=== PATIENT | female | born 1965 | race Caucasian/White ===

== ENCOUNTER 2017-03-11 12:19 | Day surgery (SDC) | payer BC ==
[~2017-03-11] VITALS: Ht 170.2 cm; Wt 42.4 kg
[2017-03-11 13:48] VITALS: Ht 170.2 cm; Wt 42.4 kg
[2017-03-11] MEDS ORDERED: LIPITOR PO (13:53)
[2017-03-11] MEDS ORDERED: ASPI-664 PO (13:53)
[2017-03-11 15:03] VITALS: BP 106/56; PULSE 58; RESP 16
[2017-03-11] MEDS ORDERED: PROPOFOL 40 ML ONE (15:49)
--- NOTE | 2017-03-11 15:50 | OPPN ---
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 Multiple biopsies obtained Plan: * The patient will greatly benefit from anatomical delineation with a CT colonography or at least a high quality double contrast barium enema. This examination was requested and insurance company denied it. We will insist as it is critical to patient's care to obtain adequate imaging. . Operation/Procedure Performed Colonoscopy with biopsies Enteroscopy with biopsies Provider: NEREIDA CHA MD Anesthesia Type: MAC Estimated blood loss: none Transfusion Required: no Specimens 1. Small amount 1. Sigmoid colon Grafts/Implants: none Complications: no NEREIDA CHA MD Mar 11, 2017 15:49
[2017-03-11 16:15] VITALS: BP 91/60; PULSE 52; RESP 14
== END 2017-03-11 18:12 | disposition home or self-care (01) ==
LOC: GIL 12:19
PROVIDERS: ATTEND Internal Medicine Gastroenterology
DX: D12.5 Benign neoplasm of sigmoid colon (principal); I25.10 Atherosclerotic heart disease of native coronary artery without angina pectoris; E78.5 Hyperlipidemia, unspecified; I10 Essential (primary) hypertension
CPT/HCPCS: 45380; 88305; Z7610

== ENCOUNTER → 2017-03-25 | Outpatient (CLI) | payer BC ==
[~2017-03-25] MED LIST: ASPI-664 PO; LIPITOR PO
== END | disposition home or self-care (01) ==
LOC: EDSEX → RAD 10:07
PROVIDERS: ATTEND Internal Medicine Gastroenterology
DX: K50.90 Crohn's disease, unspecified, without complications (principal)

== ENCOUNTER → 2017-04-22 | Outpatient (CLI) | payer BC ==
--- NOTE | 2017-04-22 15:35 | RADRPT ---
PROCEDURE: Air contrast barium enema. CLINICAL INDICATION: History of Crohn disease. Prior surgery with excision of a large portion of t he colon. TECHNIQUE: Barium and air were administered via a rectal tube and several spot and overhead radiog raphs were obtained. 17 images were obtained. 48 seconds of fluoroscopy time was used. COMPARISON: No prior study is available for comparison. FINDINGS: There appears to be excision of a large portion of the colon with only the rectosigmoid remaining. T here is free reflux of air and barium into the distal small bowel. There is no obstruction. There is no stricture. There is no extravasation of contrast. There is no mass. There is no diverticulosis. IMPRESSION: 1. Prior excision of a large portion of the colon with only the rectosigmoid remaining. 2. The visualized portion of the colon and distal small bowel appears normal. RPTAT: QQ .Carlos Singh MD, MD Date Time Electronically viewed and signed by .Carlos Singh MD, on 04/22/2017 15:35 .R/
== END | disposition home or self-care (01) ==
LOC: EDSEX 03-31 10:00 → RAD 08:53
PROVIDERS: ATTEND Internal Medicine Gastroenterology
DX: K50.90 Crohn's disease, unspecified, without complications (principal)
CPT/HCPCS: 74280